=== PATIENT | female | born 1970 | race Caucasian/White ===

== ENCOUNTER 2017-08-03 09:45 | Emergency (ER) | payer MEDICAID ==
[2017-08-03] MEDS ORDERED: Acetaminophen 325 MG Tab PO ONE (10:19)
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
[2017-08-03] MEDS ORDERED: Sodium Chloride 0.9% 10 ML Syringe FLUSH PRN (10:29)
[2017-08-03] MEDS ORDERED: Sodium Chloride 0.9% 2.5 ML Syringe FLUSH PRN (10:29)
[2017-08-03] MEDS ORDERED: cefTRIAXone 500 MG in Sodium Chloride 0.9% 50 ML IV ONE (11:08)
[2017-08-03] MEDS ORDERED: Azithromycin 250 MG Tab PO ONE (11:08)
[2017-08-03 11:17] LABS: CHLORIDE,CL 107 mmol/L (98-110); SODIUM,NA 138 mmol/L (136-146)
[2017-08-03] MEDS ORDERED: cefTRIAXone 500 MG Vial IV SCH (11:45)
== END 2017-08-03 12:13 | disposition home or self-care (01) ==
LOC: MW.ED 09:45
DX: T74.21XA Adult sexual abuse, confirmed, initial encounter (principal); N76.0 Acute vaginitis; F17.210 Nicotine dependence, cigarettes, uncomplicated
CPT/HCPCS: 36415; 80053; 81001; 81025; 85025; 87480; 87491; 87510; 87591; 87660; 96374; 99284; A9270; J0696

== ENCOUNTER 2017-08-28 09:14 | Day surgery (SDC) | payer MEDICAID ==
[2017-08-27 13:03] LABS: CHLORIDE,CL 107 mmol/L (98-110); SODIUM,NA 139 mmol/L (136-146)
[~2017-08-28 09:14] MED LIST: Fluorescein 5 ML Vial ONE; Lidocaine 2% 5 ML SDV ONE; Midazolam 1 MG/ML 2 ML SDV ONE; Ondansetron 4 MG/2 ML SDV ONE; Propofol 200 MG/20 ML SDV ONE; Rocuronium 10 MG/ML 10 ML Syringe ONE; Scopolamine 1.5 MG Transdermal Patch TRDERM PRN; Sodium Chloride 0.9% 10 ML Syringe FLUSH PRN; Sodium Chloride 0.9% 2.5 ML Syringe FLUSH PRN; ceFAZolin 2 GM in Premix Bag 1 BAG IV ONE; fentaNYL 100 MCG/2 ML SDV IVPUSH PRN; fentaNYL 100 MCG/2 ML SDV ONE
[2017-08-28] MEDS: Lactated Ringers 1,000 ML IV SCH ×2 (09:42→18:59)
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
[2017-08-28] MEDS ORDERED: Ketorolac 30 MG/ML SDV ONE (14:11)
[2017-08-28] MEDS ORDERED: Promethazine 25 MG/ML SDV IM PRN (14:36)
[2017-08-28] MEDS ORDERED: Ketorolac 30 MG/ML SDV IVPUSH PRN (14:36)
[2017-08-28] MEDS ORDERED: Morphine 4 MG/ML Syringe IVPUSH PRN (14:36)
[2017-08-28] MEDS ORDERED: Morphine 2 MG/ML Syringe IVPUSH PRN (14:36)
[2017-08-28] MEDS ORDERED: Acetaminophen/oxyCODONE 325-5 MG Tab PO PRN ×2 (14:36)
[2017-08-28] MEDS ORDERED: Ondansetron 4 MG/2 ML SDV IVPUSH PRN (14:36)
[2017-08-28] MEDS ORDERED: Ketorolac 30 MG/ML SDV IVPUSH ONE (14:36)
--- NOTE | 2017-08-28 14:40 | PCM.OPNOTE ---
- General Post-Op/Procedure Note Date of Surgery/Procedure: 08/28/17 Operative Procedure(s): TVH,BSO and Cysto Pre Op Diagnosis: Bleeding Post-Op Diagnosis: Same Primary Surgeon: Dave Connell Logistics Team Lead: Jessy Dickey EBL in mLs: 100 Complications: None Condition: Good
[2017-08-28] MEDS ORDERED: Belladonna Alkaloids/Opium 16.2-30 MG Supp RECTAL ONE (15:00)
--- NOTE | 2017-08-28 15:22 | PCM.POSTAN ---
POST ANESTHESIA ASSESSMENT - MENTAL STATUS Mental Status: Alert, Oriented - RESPIRATORY Respiratory Status: Respiratory Rate WNL, Airway Patent, O2 Saturation Stable - CARDIOVASCULAR CV Status: Pulse Rate WNL, Blood Pressure Stable - GASTROINTESTINAL GI Status: No Symptoms - POST OP HYDRATION Hydration Status: Adequate & Stable
--- NOTE | 2017-08-28 19:01 | OR ---
SURGEON: Dave Connell MD DATE OF PROCEDURE: PREOPERATIVE DIAGNOSES: Menometrorrhagia. POSTOPERATIVE DIAGNOSIS: Menometrorrhagia. OPERATION PERFORMED: Total vaginal hysterectomy and bilateral salpingo-oophorectomy, and cystoscopy. AWAKE OVERNIGHT COUNSELOR: DINH Mcclure. ANESTHESIA: General endotracheal intubation, Carmen Jon and Dr. Ortiz. ESTIMATED BLOOD LOSS: 100 mL. COMPLICATIONS: None. FINDINGS: Uterus about 8-week size. Both tubes and ovaries are essentially normal. INDICATION FOR SURGERY: [place] refer to the admit note. PROCEDURE IN DETAIL: The patient was brought to the OR, properly identified. After adequate level of general anesthesia, the patient was placed in lithotomy position, prepped and draped in sterile fashion as usual. Short-weighted speculum was placed in the vagina and single-tooth tenaculum was applied to the cervix, circular incision, endocervical, endovaginal mucosa around the cervix. Then, the posterior cul-de- sac was entered posteriorly and the uterosacral ligament identified. A short- weighted speculum was placed with an extended long-weighted speculum. The uterosacral ligament identified from both sides, clamped with a curved Zeppelin, transected, and suture ligated with 2-0 Vicryl pop-off. The same thing was done with the cardinal ligament. The cervical vesicle space was entered anteriorly and the bladder retracted completely away from the operative field and the anterior peritoneum was entered. Broad ligament was then clamped from both sides, transected, and suture ligated with 2-0 Vicryl pop-off. Uterine vessel suture ligated at this step. The uterus was delivered posteriorly and the superior pedicle was clamped with 90 degree zeppelin. The tubes and ovaries included with the specimen and then the superior pedicle tied twice with a free tie on both sides. Inspection of the operative field shows no oozing, no bleeding in the uterosacral ligament and cardinal ligament anchored to the vagina at 3 and 9 o'clock and then we proceeded to close the vaginal cuff with 2- 0 Vicryl interrupted [id number]. After reviewing that, the cystoscopy was performed. The bladder was intact. Both ureteric orifices were seen with the urine coming clearly from both of them. Thus, the patency of both ureter verified. Satisfied with these finding, the procedure ended. Instrument and sponge count was correct. The patient tolerated the procedure well, went to recovery room in stable general condition. MACKENZIE GONZALEZ /[id number]
[2017-08-29 06:37] LABS: CHLORIDE,CL 107 mmol/L (98-110); SODIUM,NA 138 mmol/L (136-146)
--- NOTE | 2017-08-29 09:47 | PCM.SURGPN ---
- General Info Date of Service: 08/29/17 POD#: 1 Functional Status: Reports: Pain Controlled - Review of Systems General: Reports: No Symptoms HEENT: Reports: No Symptoms Pulmonary: Reports: No Symptoms Cardiovascular: Reports: No Symptoms Gastrointestinal: Reports: No Symptoms Genitourinary: Reports: No Symptoms Musculoskeletal: Reports: No Symptoms Skin: Reports: No Symptoms Neurological: Reports: No Symptoms Psychiatric: Reports: No Symptoms - Patient Data Vitals - Most Recent: Last Vital Signs Temp 37.6 C 08/29/17 03:19 Pulse 63 08/29/17 03:19 Resp 16 08/29/17 03:19 BP 119/81 08/29/17 03:19 Pulse Ox 96 08/29/17 03:19 Weight - Most Recent: 49.895 kg I&O - Last 24 Hours: Intake & Output 08/28/17 08/29/17 08/29/17 22:59 06:59 14:59 Intake Total 2852 Output Total 300 Balance 2852 -300 Lab Results Last 24 Hrs: Laboratory Results - last 24 hr 08/29/17 08/29/17 Range/Units 06:05 06:05 WBC 22.74 H (4.0-11.0) K/uL RBC 3.39 L (4.30-5.90) M/uL Hgb 10.1 L (12.0-16.0) g/dL Hct 30.5 L (36.0-46.0) % MCV 90.0 (80.0-98.0) fL MCH 29.8 (27.0-32.0) pg MCHC 33.1 (31.0-37.0) g/dL RDW Std Deviation 51.7 (28.0-62.0) fl RDW Coeff of Harriet 16 H (11.0-15.0) % Plt Count 262 (150-400) K/uL MPV 9.60 (7.40-12.00) fL Neut % (Auto) 78.3 (48.0-80.0) % Lymph % (Auto) 14.8 L (16.0-40.0) % [place] % (Auto) 6.8 (0.0-15.0) % Eos % (Auto) 0.0 (0.0-7.0) % Baso % (Auto) 0.1 (0.0-1.5) % Neut # (Auto) 17.8 H (1.4-5.7) K/uL Lymph # (Auto) 3.4 H (0.6-2.4) K/uL [place] # (Auto) 1.6 H (0.0-0.8) K/uL Eos # (Auto) 0.0 (0.0-0.7) K/uL Baso # (Auto) 0.0 (0.0-0.1) K/uL Nucleated RBC % 0.0 /100WBC Nucleated RBCs # 0 K/uL Sodium 138 (136-146) mmol/L Potassium 4.0 (3.5-5.1) mmol/L Chloride 107 (98-110) mmol/L Carbon Dioxide 23 (21-31) mmol/L BUN 16 (6.0-23.0) mg/dL Creatinine 0.6 (0.6-1.5) mg/dL Est Cr Clr Drug Dosing 91.30 mL/min Estimated GFR (MDRD) > 60.0 ml/min Glucose 110 (60-110) mg/dL Calcium 8.7 L (8.8-10.8) mg/dL Med Orders - Current: Current Medications Fentanyl (Sublimaze) 50 mcg IVPUSH .Q5MIN PRN PRN Reason: Pain Lactated Ringer's (Ringers, Lactated) 1,000 mls @ 125 mls/hr IV ASDIRECTED [facility] Last Admin: 08/28/17 18:59 Dose: 125 mls/hr Ketorolac Tromethamine (Toradol) 30 mg IVPUSH Q6H PRN PRN Reason: Pain (severe 7-10) Stop: 09/02/17 14:36 Last Admin: 08/29/17 03:14 Dose: 30 mg Morphine Sulfate (Morphine) 2 mg IVPUSH Q2H PRN PRN Reason: Pain (severe 7-10) Morphine Sulfate (Morphine) 4 mg IVPUSH Q2H PRN PRN Reason: Pain (severe 7-10) Ondansetron HCl (Zofran) 4 mg IVPUSH Q6H PRN PRN Reason: Nausea/Vomiting Oxycodone/Acetaminophen (Percocet 325-5 Mg) 1 tab PO Q4H PRN PRN Reason: Pain (moderate 4-6) Last Admin: 08/28/17 17:49 Dose: 1 tab Oxycodone/Acetaminophen (Percocet 325-5 Mg) 2 tab PO Q4H PRN PRN Reason: Pain (moderate 4-6) Promethazine HCl (Phenergan) 25 mg IM Q6H PRN PRN Reason: Nausea/Vomiting Scopolamine (Transderm-Scop) 1.5 mg TRDERM .ONCE PRN PRN Reason: Post Op Nausea Last Admin: 08/28/17 09:43 Dose: 1.5 mg Sodium Chloride (Saline Flush) 10 ml FLUSH ASDIRECTED PRN PRN Reason: Keep Vein Open Sodium Chloride (Saline Flush) 2.5 ml FLUSH ASDIRECTED PRN PRN Reason: Keep Vein Open Discontinued Medications Belladonna Alkaloids/Opium (B & O Supprettes No. 15a) 1 supp RECTAL ONETIME ONE Stop: 08/28/17 15:01 Last Admin: 08/28/17 15:08 Dose: 1 supp Fentanyl (Sublimaze) Confirm Administered Dose 200 mcg .ROUTE .STK-MED ONE Stop: 08/28/17 08:57 Fluorescein Sodium (Ak-Fluor) Confirm Administered Dose 5 ml .ROUTE .STK-MED ONE Stop: 08/28/17 07:59 Glycopyrrolate () Confirm Administered Dose 1 mg .ROUTE .STK-MED ONE Stop: 08/28/17 14:09 Cefazolin Sodium/Dextrose 2 gm (/ Premix) 50 mls @ 100 mls/hr IV ONETIME ONE Stop: 08/27/17 09:43 Last Admin: 08/28/17 20:34 Dose: Not Given Acetaminophen (Ofirmev) Confirm Administered Dose 100 mls @ as directed IV .STK- MED ONE Stop: 08/28/17 07:59 Cefazolin Sodium/Dextrose (Ancef) Confirm Administered Dose 50 mls @ as directed .ROUTE .STK-MED ONE Stop: 08/28/17 13:51 Ketorolac Tromethamine (Toradol) Confirm Administered Dose 30 mg .ROUTE .STK- MED ONE Stop: 08/28/17 14:12 Ketorolac Tromethamine (Toradol) 30 mg IVPUSH ONETIME ONE Stop: 08/28/17 14:37 Last Admin: 08/28/17 20:34 Dose: Not Given Lidocaine (Xylocaine-Mpf 2%) Confirm Administered Dose 5 ml .ROUTE .STK-MED ONE Stop: 08/28/17 08:57 Midazolam HCl (Versed 1 Mg/Ml) Confirm Administered Dose 2 mg .ROUTE .STK-MED ONE Stop: 08/28/17 08:57 Ondansetron HCl (Zofran) Confirm Administered Dose 4 mg .ROUTE .STK-MED ONE Stop: 08/28/17 08:57 Propofol (Diprivan 20 Ml) Confirm Administered Dose 200 mg .ROUTE .STK-MED ONE Stop: 08/28/17 08:57 Rocuronium [place] (Zemuron) Confirm Administered Dose 100 mg .ROUTE .STK-MED ONE Stop: 08/28/17 08:57 - Exam Wound/Incisions: Healing Well General: Alert, Oriented HEENT: Pupils Equal Neck: Supple Lungs: Clear to Auscultation, Normal Respiratory Effort Cardiovascular: Regular Rate, Regular Rhythm GI/Abdominal Exam: Normal Bowel Sounds, Soft, Non-Tender, No Organomegaly, No Distention, No Abnormal Bruit, No Mass, Pelvis Stable Extremities: Normal Inspection, Normal Range of Motion, Non-Tender, No Pedal Edema, Normal Capillary Refill Skin: Warm, Dry, Intact Neurological: No New Focal Deficit Psy/Mental Status: Alert, Normal Affect, Normal Mood - Problem List Review Problem List Initiated/Reviewed/Updated: Yes - My Orders Last 24 Hours: Active Orders 24 hr Category Date Time Status Patient Status [ADT] Routine ADT 08/28/17 14:36 Active Notify Provider Vital Signs [RC] ASDIRECTED Care 08/28/17 14:36 Active Oxygen Therapy [RC] ASDIRECTED Care 08/28/17 14:36 Active RT Incentive Spirometry [RC] Q2HWA Care 08/28/17 14:36 Active Up With Assistance [RC] PER UNIT ROUTINE Care 08/28/17 14:36 Active Up ad Jackie [RC] PER UNIT ROUTINE Care 08/28/17 14:36 Active Vital Signs [RC] PER UNIT ROUTINE Care 08/28/17 14:36 Active Regular Diet [DIET] Diet 08/28/17 Dinner Active Acetaminophen/oxyCODONE [Percocet 325-5 MG] Med 08/28/17 14:36 Active 1 tab PO Q4H PRN Acetaminophen/oxyCODONE [Percocet 325-5 MG] Med 08/28/17 14:36 Active 2 tab PO Q4H PRN Ketorolac [Toradol] Med 08/28/17 14:36 Active 30 mg IVPUSH Q6H PRN Morphine Med 08/28/17 14:36 Active 2 mg IVPUSH Q2H PRN Morphine Med 08/28/17 14:36 Active 4 mg IVPUSH Q2H PRN Ondansetron [Zofran] Med 08/28/17 14:36 Active 4 mg IVPUSH Q6H PRN Promethazine [Phenergan] Med 08/28/17 14:36 Active 25 mg IM Q6H PRN fentaNYL [Sublimaze] Med 08/28/17 09:04 Active 50 mcg IVPUSH .Q5MIN PRN Peripheral IV Discontinue [OM.PC] Routine Oth 08/28/17 14:36 Ordered Sequential Compression Device [OM.PC] Per Unit Routine Oth 08/28/17 14:36 Ordered Resuscitation Status Routine Resus Stat 08/28/17 14:36 Ordered Medication Orders Fentanyl (Sublimaze) 50 mcg IVPUSH .Q5MIN PRN PRN Reason: Pain Lactated Ringer's (Ringers, Lactated) 1,000 mls @ 125 mls/hr IV ASDIRECTED [facility]ASHID Last Admin: 08/28/17 18:59 Dose: 125 mls/hr Infusion: 08/28/17 17:42 Dose: 125 mls/hr Admin: 08/28/17 09:42 Dose: 125 mls/hr Ketorolac Tromethamine (Toradol) 30 mg IVPUSH Q6H PRN PRN Reason: Pain (severe 7-10) Stop: 09/02/17 14:36 Last Admin: 08/29/17 03:14 Dose: 30 mg Morphine Sulfate (Morphine) 2 mg IVPUSH Q2H PRN PRN Reason: Pain (severe 7-10) Morphine Sulfate (Morphine) 4 mg IVPUSH Q2H PRN PRN Reason: Pain (severe 7-10) Ondansetron HCl (Zofran) 4 mg IVPUSH Q6H PRN PRN Reason: Nausea/Vomiting Oxycodone/Acetaminophen (Percocet 325-5 Mg) 1 tab PO Q4H PRN PRN Reason: Pain (moderate 4-6) Last Admin: 08/28/17 17:49 Dose: 1 tab Oxycodone/Acetaminophen (Percocet 325-5 Mg) 2 tab PO Q4H PRN PRN Reason: Pain (moderate 4-6) Promethazine HCl (Phenergan) 25 mg IM Q6H PRN PRN Reason: Nausea/Vomiting Scopolamine (Transderm-Scop) 1.5 mg TRDERM .ONCE PRN PRN Reason: Post Op Nausea Last Admin: 08/28/17 09:43 Dose: 1.5 mg Sodium Chloride (Saline Flush) 10 ml FLUSH ASDIRECTED PRN PRN Reason: Keep Vein Open Sodium Chloride (Saline Flush) 2.5 ml FLUSH ASDIRECTED PRN PRN Reason: Keep Vein Open - Assessment Assessment (Free Text/Narrative):: Status post total vaginal hysterectomy and left, bilateral salpingo- oophorectomy and cystoscopy postoperative day #1 the patient on regular diet she is ambulatory she is voiding there is no bleeding and had lab work is within normal limits - Plan Plan (Free Text/Narrative):: The patient will be sent home today the post hysterectomy instruction is given to her prescription for Percocet 7.5/325 for postoperative pain the patient does have an appointment to come to the office 1 week of her discharge
== END 2017-08-29 11:00 | disposition home or self-care (01) ==
LOC: MW.SDS 09:14 → MW.OB 14:36 → MW.SDS 08-29 11:00
PROVIDERS: ATTEND Obstetrics & Gynecology
DX: N83.02 Follicular cyst of left ovary (principal); N87.9 Dysplasia of cervix uteri, unspecified; N73.6 Female pelvic peritoneal adhesions (postinfective); F32.9 Major depressive disorder, single episode, unspecified; F41.9 Anxiety disorder, unspecified; F17.210 Nicotine dependence, cigarettes, uncomplicated; Z79.899 Other long term (current) drug therapy
CPT/HCPCS: 36415; 58262; 80048; 84703; 85025; 85027; 86850; 86900; 86901; A9270; J0690; J1885; J2250; J2405; J3010; J7120; 00944; 88307; J2704

== ENCOUNTER 2017-12-14 18:53 | Emergency (ER) | payer SELFPAY ==
[2017-12-14] MEDS ORDERED: Cyclobenzaprine 10 MG Tab PO ONE (19:17)
[2017-12-14] MEDS ORDERED: Ketorolac 60 MG/2 ML SDV IM ONE (19:17)
--- NOTE | 2017-12-14 19:17 | EDM.PDOC ---
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 This pain is been present for the last 2 months and has not improved. Pain worsens with bending and twisting Review of Systems: As per history of present illness and below otherwise all systems reviewed and negative. Past medical history: As per history of present illness and as reviewed below otherwise noncontributory. Surgical history: As per history of present illness and as reviewed below otherwise noncontributory. Social history: No reported history of drug or alcohol abuse. Family history: As per history of present illness and as reviewed below otherwise noncontributory. Physical exam: Alert and oriented female answering questions appropriately was all extremities without any difficulty. Answers questions in full sentences without any shortness of breath HEENT: Atraumatic, normocehpalic, pupils reactive, negative for conjunctival pallor or scleral icterus, mucous membranes moist, throat clear, neck supple, nontender, trachea midline. Lungs: Clear to auscultation, breath sounds equal bilaterally, chest non tender. Heart: S1S2, regular, negative for clicks, rubs, or JVD. Abdomen: Soft, nondistended, nontender. Negative for masses or hepatossplenmegaly. Negative for costovertebral tenderness. Musculoskeletal tenderness is noted along the left flank area. Pelvis: Stable nontender. Genitourinary: Deferred. Rectal: Deferred Extremities: Atraumatic, negative for cords or calf pain. Neurovascular unremarkable. Neuro: Awake, alert, oriented. Cranial nerves II through XII unremarkable. Cerebellum unremarkable. Motor and sensory unremarkable throughout. Exam nonfocal. Diagnostics: [] Therapeutics: [Toradol 60 IM Flexeril 10] Impression: []Low back pain Plan: []Discharged to home Prescription written for Flexeril and diclofenac Referral for physical therapy Follow-up with Dr. Elkins Definitive disposition and diagnosis as appropriate pending reevaluation and review of above. 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: Musculoskeletal History: Reports: Fracture Other Musculoskeletal History: hx of fx clavicle Psychiatric History: Reports: Anxiety, Depression - Past Surgical History Female Surgical History: Reports: Hysterectomy Social & Family History - Family History Family Medical History: Noncontributory - Tobacco Use Smoking Status *Q: Current Every Day Smoker Years of Tobacco use: 20 Packs/Tins Daily: 1 - Alcohol Use Days Per Week of Alcohol Use: 0 - Recreational Drug Use Recreational Drug Use: No Drug Use in Last 12 Months: No Recreational Drug Type: Reports: Methamphetamine ED ROS GENERAL - Review of Systems Review Of Systems: ROS reveals no pertinent complaints other than HPI. ED EXAM, GI/ABD - Physical Exam Exam: See Below (see dictation) Course - Vital Signs Last Recorded V/S: Last Vital Signs Temp 37.2 C 12/14/17 19:00 Pulse 111 H 12/14/17 19:00 Resp 18 12/14/17 19:00 BP 151/102 H 12/14/17 19:00 Pulse Ox 96 12/14/17 19:00 - Orders/Labs/Meds Meds: Medications Discontinued Medications Generic Name Dose Route Start Last Admin Trade Name Verónica PRN Reason Stop Dose Admin Cyclobenzaprine HCl 10 mg 12/14/17 19:17 Flexeril PO 12/14/17 19:18 ONETIME ONE Ketorolac Tromethamine 60 mg 12/14/17 19:17 Toradol IM 12/14/17 19:18 ONETIME ONE Departure - Departure Time of Disposition: 19:23 Disposition: Home, Self-Care 01 Condition: Good Clinical Impression: Low back pain - Discharge Information Referrals: PCP,None [Primary Care Provider] - Forms: ED Department Discharge Additional Instructions: The following information is given to patients seen in the emergency department who are being discharged to home. This information is to outline your options for follow-up care. We provide all patients seen in our emergency department with a follow-up referral. The need for follow-up, as well as the timing and circumstances, are variable depending upon the specifics of your emergency department visit. If you don't have a primary care physician on staff, we will provide you with a referral. We always advise you to contact your personal physician following an emergency department visit to inform them of the circumstance of the visit and for follow-up with them and/or the need for any referrals to a consulting specialist. The emergency department will also refer you to a specialist when appropriate. This referral assures that you have the opportunity for followup care with a specialist. All of these measure are taken in an effort to provide you with optimal care, which includes your followup. Under all circumstances we always encourage you to contact your private physician who remains a resource for coordinating your care. When calling for followup care, please make the office aware that this follow-up is from your recent emergency room visit. If for any reason you are refused follow-up, please contact the [facility] emergency department at and asked to speak to the emergency department charge nurse. IYou have low back strain on the left side Prescription has been written for diclofenac and for Flexeril please take as prescribed as this condition has been present for the last 2 months she will need some physical therapy to help resolve your pain Referral has been made for physical therapy he may see her physical therapist of choice Please follow-up with Dr. Elkins as discussed Return to the emergency department as directed
== END 2017-12-14 19:47 | disposition home or self-care (01) ==
LOC: MW.ED 18:53
DX: M54.5 Low back pain (principal); F17.210 Nicotine dependence, cigarettes, uncomplicated; F41.9 Anxiety disorder, unspecified; F32.9 Major depressive disorder, single episode, unspecified; Z90.49 Acquired absence of other specified parts of digestive tract; Z79.899 Other long term (current) drug therapy
CPT/HCPCS: 96372; 99284; A9270; J1885

== ENCOUNTER 2018-12-16 14:07 | Emergency (ER) | payer SELFPAY ==
--- NOTE | 2018-12-16 14:34 | EDM.PDOC ---
ED HPI GENERAL MEDICAL PROBLEM - General Chief Complaint: General Stated Complaint: PAIN IN BOTH ARMS Time Seen by Provider: 12/16/18 14:09 Source of Information: Reports: Patient History Limitations: Reports: No Limitations - History of Present Illness INITIAL COMMENTS - FREE TEXT/NARRATIVE: HISTORY AND PHYSICAL: History of present illness: Patient is a 48-year-old female presents to the ED today with bilateral hand pain 4 days. Patient states that she has a new job and has been having to do repetitive tedious movements with her hands and has noticed that this has exacerbated the pain in her hands. 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 Patient states she has had this pain in the past and was treated but was not sure of the diagnosis. Patient denies any trauma or injury to the hands. Patient has not taken anything for her symptoms. Patient denies any other symptoms at this time and any health history. Patient denies fever, chills, chest pain, shortness of breath, or cough. Denies headache, neck stiff ness, change in vision, syncope, or near syncope. Denies nausea, vomiting, abdominal pain, diarrhea, constipation, or dysuria. Has not noted any blood in urine or stool. Patient has been eating and drinking appropriately. Review of systems: As per history of present illness and below otherwise all systems reviewed and negative. Past medical history: As per history of present illness and as reviewed below otherwise noncontributory. Surgical history: As per history of present illness and as reviewed below otherwise noncontributory. Social history: See social history for further information Family history: As per history of present illness and as reviewed below otherwise noncontributory. Physical exam: General: Patient is alert, oriented, and in no acute distress. Patient sitting comfortably on exam table. HEENT: Atraumatic, normocephalic, pupils equal and reactive bilaterally, negative for conjunctival pallor or scleral icterus, mucous membranes moist, TMs normal bilaterally, throat clear, neck supple, nontender, trachea midline. No drooling or trismus noted. No meningeal signs. No hot potato voice noted. Lungs: Clear to auscultation, breath sounds equal bilaterally, chest nontender. Heart: S1S2, regular rate and rhythm without overt murmur Abdomen: Soft, nondistended, nontender. Negative for masses or hepatosplenomegaly. Negative for costovertebral tenderness. Pelvis: Stable nontender. Genitourinary: Deferred. Rectal: Deferred. Skin: Intact, warm, dry. No lesions or rashes noted. Extremities: Atraumatic, negative for cords or calf pain. Neurovascular unremarkable. Positive Phalen and Tinel sign of bilateral hands. Patient has 5 out of 5 strength of the bilateral wrists states. Patient has 4 out of 5 strength of all the digits on the bilateral hands. Radial pulses grossly intact bilaterally with capillary refill less than 2 seconds. No obvious deformities or edema noted. Neuro: Awake, alert, oriented. Cranial nerves II through XII unremarkable. Cerebellum unremarkable. Motor and sensory unremarkable throughout. Exam nonfocal. Notes: Dr. Hernandez verbally involved in patients care. Throughout stay in ED, patient's stated pain seems out of proportion to stated complaint. Throughout different times in the ED, patient writing around in pain. Discussed the importance of follow up with Dr. Archibald or her primary care provider. Voices understanding and is agreeable to plan of care. Denies any further questions or concerns at this time. Diagnostics: CBC, bilateral hand XR Therapeutics: Toradol, bilateral cock up wrist splint Prescription: None Impression: Bilateral carpal tunnel syndrome Cannot r/o drug seeking behavior Plan: 1. Use wrist splints at night for symptomatic relief. You can alternate ibuprofen and Tylenol as directed for pain and discomfort. 2. Follow-up with Dr. Archibald, the hand specialist, and your primary care provider as discussed. 3. Return to the ED as needed and as discussed. Definitive disposition and diagnosis as appropriate pending reevaluation and review of above. 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: Musculoskeletal History: Reports: Fracture Other Musculoskeletal History: hx of fx clavicle Psychiatric History: Reports: Anxiety, Depression - Infectious Disease History Infectious Disease History: Reports: Chicken Pox, Measles, Meningitis, Mumps - Past Surgical History Female Surgical History: Reports: Hysterectomy Social & Family History - Family History Family Medical History: Noncontributory - Tobacco Use Smoking Status *Q: Current Every Day Smoker Years of Tobacco use: 30 Packs/Tins Daily: 0.3 - Recreational Drug Use Recreational Drug Use: No ED ROS GENERAL - Review of Systems Review Of Systems: ROS reveals no pertinent complaints other than HPI. ED EXAM, GENERAL - Physical Exam Exam: See Below (See dictation) Course - Vital Signs Last Recorded V/S: Last Vital Signs Temp 36.2 C 12/16/18 14:18 Pulse 84 12/16/18 14:18 Resp 18 12/16/18 14:18 BP 111/78 12/16/18 14:18 Pulse Ox 99 12/16/18 14:18 - Orders/Labs/Meds Orders: Active Orders 24 hr Category Date Time Status Hand Comp Min 3V Lt [CR] Stat Exams 12/16/18 14:41 Taken Hand Comp Min 3V Rt [CR] Stat Exams 12/16/18 14:41 Taken Labs: Laboratory Tests 12/16/18 12/16/18 Range/Units 14:32 14:32 WBC 8.81 (4.0-11.0) K/uL RBC 4.18 L (4.30-5.90) M/uL Hgb 12.8 (12.0-16.0) g/dL Hct 38.8 (36.0-46.0) % MCV 92.8 (80.0-98.0) fL MCH 30.6 (27.0-32.0) pg MCHC 33.0 (31.0-37.0) g/dL RDW Std Deviation 51.2 (28.0-62.0) fl RDW Coeff of Harriet 15 (11.0-15.0) % Plt Count 309 (150-400) K/uL MPV 10.00 (7.40-12.00) fL Neut % (Auto) 49.7 (48.0-80.0) % Lymph % (Auto) 39.0 (16.0-40.0) % [place] % (Auto) 8.3 (0.0-15.0) % Eos % (Auto) 2.7 (0.0-7.0) % Baso % (Auto) 0.3 (0.0-1.5) % Neut # (Auto) 4.4 (1.4-5.7) K/uL Lymph # (Auto) 3.4 H (0.6-2.4) K/uL [place] # (Auto) 0.7 (0.0-0.8) K/uL Eos # (Auto) 0.2 (0.0-0.7) K/uL Baso # (Auto) 0.0 (0.0-0.1) K/uL Nucleated RBC % 0.0 /100WBC Nucleated RBCs # 0 K/uL ESR 7 (0-19) mm/hr Meds: Medications Discontinued Medications Generic Name Dose Route Start Last Admin Trade Name Robq PRN Reason Stop Dose Admin Ketorolac Tromethamine 60 mg 12/16/18 14:46 12/16/18 15:00 Toradol IM 12/16/18 14:47 60 mg ONETIME ONE Administration Departure - Departure Time of Disposition: 15:47 Disposition: Home, Self-Care 01 Clinical Impression: Bilateral carpal tunnel syndrome - Discharge Information Referrals: PCP,None [Primary Care Provider] - Forms: ED Department Discharge Additional Instructions: The following information is given to patients seen in the emergency department who are being discharged to home. This information is to outline your options for follow-up care. We provide all patients seen in our emergency department with a follow-up referral. The need for follow-up, as well as the timing and circumstances, are variable depending upon the specifics of your emergency department visit. If you don't have a primary care physician on staff, we will provide you with a referral. We always advise you to contact your personal physician following an emergency department visit to inform them of the circumstance of the visit and for follow-up with them and/or the need for any referrals to a consulting specialist. The emergency department will also refer you to a specialist when appropriate. This referral assures that you have the opportunity for follow-up care with a specialist. All of these measure are taken in an effort to provide you with optimal care, which includes your follow-up. Under all circumstances we always encourage you to contact your private physician who remains a resource for coordinating your care. When calling for follow-up care, please make the office aware that this follow-up is from your recent emergency room visit. If for any reason you are refused follow-up, please contact the [facility] Emergency Department at and asked to speak to the emergency department charge nurse. [facility] [address] [place] [address] [address] [facility] [address] [facility], [address] [place] [address] 1. Use wrist splints at night for symptomatic relief. You can alternate ibuprofen and Tylenol as directed for pain and discomfort. 2. Follow-up with Dr. Archibald, the hand specialist, and your primary care provider as discussed. 3. Return to the ED as needed and as discussed. - My Orders Last 24 Hours: My Active Orders 12/16/18 14:41 Hand Comp Min 3V Lt [CR] Stat Hand Comp Min 3V Rt [CR] Stat - Assessment/Plan Last 24 Hours: My Active Orders 12/16/18 14:41 Hand Comp Min 3V Lt [CR] Stat Hand Comp Min 3V Rt [CR] Stat
[2018-12-16] MEDS ORDERED: Ketorolac 60 MG/2 ML SDV IM ONE (14:46)
--- NOTE | 2018-12-16 15:46 | CR ---
EXAMINATION: Bilateral hands HISTORY: Pain COMPARISON: None TECHNIQUE: 3 views bilaterally FINDINGS: There is no acute osseous abnormality, dislocation, or fracture. Bone mineralization and joint spaces are preserved. No focal soft tissue swelling. Radiocarpal alignment is normal. IMPRESSION: Grossly unremarkable left and right hands.
== END 2018-12-16 15:57 | disposition home or self-care (01) ==
LOC: MW.ED 14:07
DX: G56.03 Carpal tunnel syndrome, bilateral upper limbs (principal); F17.210 Nicotine dependence, cigarettes, uncomplicated
CPT/HCPCS: 36415; 73130; 85025; 85652; 96372; 99283; J1885

== ENCOUNTER 2020-10-20 17:42 | Emergency (ER) | payer MEDICAID ==
[2020-10-20] MEDS ORDERED: Amoxicillin/Clavulanate K 875-125 MG Tab PO ONE (18:07)
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
== END 2020-10-20 18:21 | disposition home or self-care (01) ==
LOC: MW.ED 17:42
DX: K08.89 Other specified disorders of teeth and supporting structures (principal); Z79.899 Other long term (current) drug therapy
CPT/HCPCS: 99282; A9270

== ENCOUNTER 2021-06-24 19:10 | Emergency (ER) | payer MEDICAID ==
[2021-06-24] MEDS ORDERED: Ondansetron 4 MG Tab.DIS PO ONE (20:50)
[2021-06-24 20:57] LABS: BLOOD UREA NITROGEN,BUN 18 mg/dL (7.0-18.0); CARBON DIOXIDE,CO2 23.8 mmol/L (21.0-32.0); CHLORIDE,CL 103 mmol/L (98-107); GLUCOSE RANDOM 108 mg/dL (74-106); LIPASE 77 U/L (73-393); POTASSIUM,K 3.2 mmol/L (3.5-5.1); SODIUM,NA 139 mmol/L (136-145)
[2021-06-24] MEDS ORDERED: Alum Hydro/Mag Hydro/Simeth XS 15 ML, Lidocaine 2% 5 ML PO ONE ×2 (21:28)
--- NOTE | 2021-06-24 21:42 | EDM.PDOC ---
ED HPI GENERAL MEDICAL PROBLEM - General Chief Complaint: Gastrointestinal Problem Stated Complaint: VOMITTING, DIARRHEA Time Seen by Provider: 06/24/21 20:13 - History of Present Illness INITIAL COMMENTS - FREE TEXT/NARRATIVE: CHIEF COMPLAINT(S): Vomiting HISTORY OF PRESENT ILLNESS: This is a 51-year-old man with a past medical history of methamphetamine use who is in remission who relapsed approximately 1 week ago who comes to the emergency department with a chief complaint of vomiting. The patient states that for approximately 3 days now she has been not feeling well. She states that she has not been able to keep anything down and has had vomiting which is nonbloody and nonbilious. She denies any abdominal pain. She states that in addition to this she has had some diarrhea which is nonbloody and soft. She denies any recent travel or sick contacts. She states that she has been taking Tylenol and resting and thinks that she may have overworked herself at work. She states the main reason she came to the em ergency department is because her symptoms are not going away and she cannot sleep or eat anything. She denies any chest pain, shortness of breath, fever or chills. REVIEW OF SYSTEMS: Constitutional: Denies fever, chills. Eyes: Denies eye pain Ears, Nose, Mouth, & Throat: Denies earache Cardiovascular: Denies chest pain Respiratory: Denies shortness of breath Gastrointestinal: Positive for vomiting and diarrhea. Denies hematochezia, bilious emesis, hematemesis genitourinary: Denies hematuria Skin:Denies a rash MSK: Denies joint pain Neurological: Denies blurred vision Psychiatric: Denies depression PAST MEDICAL HISTORY: As per history of present illness and as reviewed below otherwise noncontributory. SURGICAL HISTORY: As per history of present illness and as reviewed below othe rwise noncontributory. SOCIAL HISTORY: As per history of present illness and as reviewed below otherwise noncontributory. FAMILY HISTORY: As per history of present illness and as reviewed below othe rwise noncontributory. EXAMINATION OF ORGAN SYSTEMS/BODY AREAS: Constitutional: Blood pressure is 129/84, heart rate 91, respiratory rate 16 with an oxygen saturation of 99% on room air. Temperature 36.8 General: Middle-aged woman who appears to be in no acute distress Psychiatric: Anxious appearing with pressured speech. Cooperative Eyes: No scleral icterus or conjunctival erythema ENMT: Moist mucous membranes. No pharyngeal erythema Cardiovascular: Regular, rate, and rhythm. No gallops, murmurs, or rubs. Bilateral upper extremity pulses symmetric and intact. No peripheral edema. No JVD. Respiratory: Lungs clear to auscultation bilaterally. No wheezes, rales, or rhonchi. Gastrointestinal: Soft, non-tender, non-distended. Normoactive bowel sounds Genitourinary: No suprapubic tenderness Musculoskeletal: Normal range of motion. Skin: No lesions or abrasions. Neurological: Alert, GCS 15 MEDICAL DECISION MAKING AND COURSE IN THE ED WITH INTERPRETATION/REVIEW OF DIAGNOSTIC STUDIES: This is a 51-year-old woman with a past medical history of prior methamphetamine use who recently did methamphetamine who comes to the emergency department with 3 days of vomiting and diarrhea who has normal vital signs. At this time I do believe this secondary to a viral cause given the diarrhea and vomiting. We will provide the patient with Zofran and a GI cocktail and obtain labs including CBC, CMP, lipase, Covid, influenza and a strep swab. We will reevaluate the patient after this. I do not believe any imaging is indicated. After further discussion with the patient the patient was concerned that she may have parasites. I do believe that she is anxious secondary to her methamphetamine use. She states that she has already contacted her sponsor. DDx: Gastroenteritis, pancreatitis, hepatitis, Covid, strep Laboratory: CBC reveals a mild leukocytosis 11.79, normocytic anemia with a hemoglobin 11.3 and hematocrit of 32.3 with some segmented neutrophils. CMP reveals hypokalemia at 3.2 otherwise unremarkable. Lipase is normal. Covid is negative. Strep is negative. On reevaluation I did discuss the results with the patient. At this time the patient had tolerated all of her medications without any vomiting. The patient appears well, is afebrile and appears nontoxic. I do not believe any further work-up is indicated. I did discuss with the patient at this time that I would provide her with a prescription for nausea medication and that p.o. hydration is important given that she has vomiting and diarrhea. She was given strict return precautions and she was amenable to discharge at this time and had no further questions. DISPOSITION: The patient was discharged home in stable condition. The patient will follow up with primary care physician in 3 to 5 days CONDITION: Fair PROCEDURES: None FINAL IMPRESSION(S)/DIAGNOSES: 1. Acute vomiting 2. Acute diarrhea Danyel Mtz M.D. Abdomen Pain Score (Numeric/FACES): 6 - Related Data Allergies Allergy/AdvReac Type Severity Reaction Status Date / Time No Known Allergies Allergy Verified 10/20/20 17:56 Home Meds: Home Meds Sertraline HCl [Zoloft] 100 mg PO DAILY 12/14/17 [History] Acetaminophen/HYDROcodone [[place] 325-5 MG] 1 tab PO Q6H PRN 3 Days #12 tablet 10/20/20 [Rx] Amoxicillin/Potassium Clav [Amox Tr-K Clv 875-125 mg Tab] 1 each PO BID 7 Days #14 tablet 10/20/20 [Rx] Chlorhexidine [Chlorhexidine Flavor] 5 ml MC BID 5 Days #100 ml 10/20/20 [Rx] QUEtiapine [SEROquel] 10/20/20 [History] Ondansetron [Zofran ODT] 4 mg PO Q6H PRN #8 tab.dis 06/24/21 [Rx] Past Medical History - Past Health History Medical/Surgical History: Denies Medical/Surgical History HEENT History: Reports: Macular Degeneration Other HEENT History: 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: Musculoskeletal History: Reports: Fracture Other Musculoskeletal History: hx of fx clavicle Psychiatric History: Reports: Anxiety, Depression - Infectious Disease History Infectious Disease History: Reports: Chicken Pox, Measles, Meningitis, Mumps - Past Surgical History Female Surgical History: Reports: Hysterectomy Social & Family History - Family History Family Medical History: No Pertinent Family History - Caffeine Use Caffeine Use: Reports: None - Recreational Drug Use Recreational Drug Use: Yes Drug Use in Last 12 Months: Yes Recreational Drug Type: Reports: Methamphetamine Recreational Drug Use Frequency: Weekly ED ROS GENERAL - Review of Systems Review Of Systems: See Below ED EXAM, GENERAL - Physical Exam Exam: See Below Course - Vital Signs Last Recorded V/S: Last Vital Signs Temp 36.8 C 06/24/21 19:54 Pulse 91 06/24/21 19:54 Resp 16 06/24/21 19:54 BP 129/84 06/24/21 19:54 Pulse Ox 99 06/24/21 19:54 - Orders/Labs/Meds Labs: Laboratory Tests 06/24/21 06/24/21 06/24/21 Range/Units 20:00 20:00 20:19 WBC 11.79 H (4.0-11.0) K/uL RBC 3.68 L (4.30-5.90) M/uL Hgb 11.3 L (12.0-16.0) g/dL Hct 32.3 L (36.0-46.0) % MCV 87.8 (80.0-98.0) fL MCH 30.7 (27.0-32.0) pg MCHC 35.0 (31.0-37.0) g/dL RDW Std Deviation 46.7 (28.0-62.0) fl RDW Coeff of Harriet 15 (11.0-15.0) % Plt Count 236 (150-400) K/uL MPV 9.80 (7.40-12.00) fL Add Manual Diff YES Neutrophils % (Manual) 55 (48.0-80.0) % Band Neutrophils % 4 % Lymphocytes % (Manual) 26 (16.0-40.0) % Monocytes % (Manual) 13 (0.0-15.0) % Eosinophils % (Manual) 2 (0.0-7.0) % Nucleated RBC % 0.0 /100WBC Absolute Seg Neuts 6.5 H (1.4-5.7) Band Neutrophils # 0.5 Lymphocytes # (Manual) 3.1 H (0.6-2.4) Monocytes # (Manual) 1.5 H (0.0-0.8) Eosinophils # (Manual) 0.2 (0.0-0.7) Nucleated RBCs # 0 K/uL Sodium (136-145) mmol/L Potassium (3.5-5.1) mmol/L Chloride (98-107) mmol/L Carbon Dioxide (21.0-32.0) mmol/L BUN (7.0-18.0) mg/dL Creatinine (0.6-1.0) mg/dL Est Cr Clr Drug Dosing mL/min Estimated GFR (MDRD) ml/min Glucose (74-106) mg/dL Calcium (8.5-10.1) mg/dL Total Bilirubin (0.2-1.0) mg/dL AST (15-37) IU/L ALT (14-63) IU/L Alkaline Phosphatase (46-116) U/L Total Protein (6.4-8.2) g/dL Albumin (3.4-5.0) g/dL Globulin (2.6-4.0) g/dL Albumin/Globulin Ratio (0.9-1.6) Lipase (73-393) U/L SARS-CoV-2 RNA (TIKA) NEGATIVE (NEGATIVE) Group A Strep (PCR) NOT DETECTED (NOT DETECT) 06/24/21 Range/Units 20:19 WBC (4.0-11.0) K/uL RBC (4.30-5.90) M/uL Hgb (12.0-16.0) g/dL Hct (36.0-46.0) % MCV (80.0-98.0) fL MCH (27.0-32.0) pg MCHC (31.0-37.0) g/dL RDW Std Deviation (28.0-62.0) fl RDW Coeff of Harriet (11.0-15.0) % Plt Count (150-400) K/uL MPV (7.40-12.00) fL Add Manual Diff Neutrophils % (Manual) (48.0-80.0) % Band Neutrophils % % Lymphocytes % (Manual) (16.0-40.0) % Monocytes % (Manual) (0.0-15.0) % Eosinophils % (Manual) (0.0-7.0) % Nucleated RBC % /100WBC Absolute Seg Neuts (1.4-5.7) Band Neutrophils # Lymphocytes # (Manual) (0.6-2.4) Monocytes # (Manual) (0.0-0.8) Eosinophils # (Manual) (0.0-0.7) Nucleated RBCs # K/uL Sodium 139 (136-145) mmol/L Potassium 3.2 L (3.5-5.1) mmol/L Chloride 103 (98-107) mmol/L Carbon Dioxide 23.8 (21.0-32.0) mmol/L BUN 18 (7.0-18.0) mg/dL Creatinine 0.7 (0.6-1.0) mg/dL Est Cr Clr Drug Dosing 82.10 mL/min Estimated GFR (MDRD) > 60.0 ml/min Glucose 108 H (74-106) mg/dL Calcium 9.5 (8.5-10.1) mg/dL Total Bilirubin 0.6 (0.2-1.0) mg/dL AST 24 (15-37) IU/L ALT 25 (14-63) IU/L Alkaline Phosphatase 106 (46-116) U/L Total Protein 8.1 (6.4-8.2) g/dL Albumin 4.1 (3.4-5.0) g/dL Globulin 4.0 (2.6-4.0) g/dL Albumin/Globulin Ratio 1.0 (0.9-1.6) Lipase 77 (73-393) U/L SARS-CoV-2 RNA (TIKA) (NEGATIVE) Group A Strep (PCR) (NOT DETECT) Meds: Medications Discontinued Medications Generic Name Dose Route Start Last Admin Trade Name Freq PRN Reason Stop Dose Admin Alum Thurston/Mag Thurston/Simeth XS 0 ml 06/24/21 21:28 06/24/21 21:35 15 ml/ Lidocaine HCl 5 ml PO 06/24/21 21:29 15 each ONETIME ONE Administration Ondansetron HCl 4 mg 06/24/21 20:50 06/24/21 20:55 Ondansetron 4 Mg Tab.Dis PO 06/24/21 20:51 4 mg ONETIME ONE Administration Departure - Departure Time of Disposition: 21:40 Disposition: Home, Self-Care 01 Condition: Fair Clinical Impression: Vomiting, Diarrhea, Methamphetamine use - Discharge Information *PRESCRIPTION DRUG MONITORING PROGRAM REVIEWED*: No *COPY OF PRESCRIPTION DRUG MONITORING REPORT IN PATIENT MAX: No Prescriptions: Ondansetron [Zofran ODT] 4 mg PO Q6H PRN #8 tab.dis PRN Reason: Nausea/Vomiting Instructions: Nausea and Vomiting, Adult, Finding Treatment for Addiction, Methamphetamines Use Disorder, Diarrhea, Adult, [id number] Referrals: PCP,None [Primary Care Provider] - Forms: ED Department Discharge Additional Instructions: You were evaluated today on an emergent basis. At this time all of your labs were normal. You were able to tolerate the medications that were given here in the emergency department. At this time I recommend use Zofran as needed for nausea and that you continue with fluid hydration including Pedialyte, Gatorade and water. I recommend a bland diet with soups over the next few days. As always I recommend you do not use methamphetamine use again. I do recommend that if you have any blood in your stool, blood in your vomit that she return to the emergency department. Otherwise follow-up with your primary care physician within 3 to 5 days. [facility] - Primary Care [address] [place] [address] [facility] [address] [place] [id number] The patient is informed of any results of their evaluation and diagnostic workup and all questions are answered. They are given discharge instructions and return precautions. The patient is stable for discharge. The patient states they understand and agree with the plan and that they will return if their symptoms get worse or if they have any new concerns. The following information is given to patients seen in the emergency department who are being discharged to home. This information is to outline your options for follow-up care. We provide all patients seen in our emergency department with a follow-up referral. The need for follow-up, as well as the timing and circumstances, are variable depending upon the specifics of your emergency department visit. If you don't have a primary care physician on staff, we will provide you with a referral. We always advise you to contact your personal physician following an emergency department visit to inform them of the circumstance of the visit and for follow-up with them and/or the need for any referrals to a consulting specialist. The emergency department will also refer you to a specialist when appropriate. This referral assures that you have the opportunity for follow-up care with a specialist. All of these measure are taken in an effort to provide you with optimal care, which includes your follow-up. Under all circumstances we always encourage you to contact your private physician who remains a resource for coordinating your care. When calling for follow-up care, please make the office aware that this follow-up is from your recent emergency room visit. If for any reason you are refused follow-up, please contact the [facility] Emergency Department at and asked to speak to the emergency department charge nurse. Sepsis Event Note (ED) - Evaluation Sepsis Screening Result: No Definite Risk - Focused Exam Vital Signs: Vital Signs Temp Pulse Resp BP Pulse Ox 06/24/21 19:54 36.8 C 91 16 129/84 99
== END 2021-06-24 22:13 | disposition home or self-care (01) ==
LOC: MW.ED 19:10
DX: R11.10 Vomiting, unspecified (principal); R19.7 Diarrhea, unspecified; F15.90 Other stimulant use, unspecified, uncomplicated; Z20.822 Contact with and (suspected) exposure to COVID-19
CPT/HCPCS: 36415; 80053; 83690; 85025; 87635; 87651; 87804; 99284; A9270; U0002

== ENCOUNTER 2022-08-03 11:00 | Emergency (ER) | payer MEDICAID ==
[2022-08-03] MEDS ORDERED: Ketorolac 60 MG/2 ML SDV IM ONE (11:31)
[2022-08-03] MEDS ORDERED: Orphenadrine 60 MG/2 ML Inj IM ONE (11:31)
== END 2022-08-03 12:32 | disposition home or self-care (01) ==
LOC: MW.ED 11:00
DX: M54.42 Lumbago with sciatica, left side (principal)
CPT/HCPCS: 73502; 96372; 99283; J1885; J2360

== ENCOUNTER 2023-03-08 11:17 | Emergency (ER) | payer MEDICAID | END 2023-03-08 12:39 | disposition home or self-care (01) | LOC: MW.ED 11:17 | DX: K02.9 Dental caries, unspecified (principal); F17.210 Nicotine dependence, cigarettes, uncomplicated | CPT/HCPCS: 99282; 99283 ==

== ENCOUNTER 2023-05-02 12:05 | Emergency (ER) | payer MEDICAID ==
[2023-05-02] MEDS ORDERED: Tetracaine HCl/PF 0.5% 4 ML Bottle EYERT ONE (12:33)
== END 2023-05-02 13:35 | disposition home or self-care (01) ==
LOC: MW.ED 12:05
DX: H10.9 Unspecified conjunctivitis (principal); Z79.899 Other long term (current) drug therapy
CPT/HCPCS: 99282; 99283; J3490

== ENCOUNTER 2023-11-16 13:46 | Emergency (ER) | payer MEDICAID | END 2023-11-16 15:23 | disposition home or self-care (01) | LOC: MW.ED 13:46 | DX: K02.9 Dental caries, unspecified (principal); K00.7 Teething syndrome; Z79.899 Other long term (current) drug therapy; Z86.19 Personal history of other infectious and parasitic diseases; Z90.710 Acquired absence of both cervix and uterus | CPT/HCPCS: 99282; 99283 ==